=== PATIENT | male | born 1970 | race Caucasian/White ===

== ENCOUNTER 2018-12-29 06:38 | Emergency (ER) | payer MEDICAID, OTHER ==
[~2018-12-29] VITALS: Ht 175.3 cm; Wt 99.8 kg
[2018-12-29 06:49] VITALS: BP 121/81
== END 2018-12-29 07:15 | disposition left against medical advice (07) ==
LOC: ER 06:42
DX: R06.02 Shortness of breath (principal); J02.9 Acute pharyngitis, unspecified; Z53.21 Procedure and treatment not carried out due to patient leaving prior to being seen by health care provider